=== PATIENT | male | born 1975 | race Hispanic/Latino ===

== ENCOUNTER 2016-08-26 15:22 | Observation (INO) | payer SELFPAY ==
[2016-08-26 15:28] VITALS: BP 149/90; RESP 20; TEMP 99.9
--- NOTE | 2016-08-26 15:40 | ED PDOC ---
HPI: Psych/Substance Abuse Time Seen by Provider: 08/26/16 15:35 Chief Complaint (Nursing): Psychiatric Evaluation History Per: EMS (Brought by EMS for suspected ingestion of drugs. Found swaying in street. Denies SI/HI) Onset/Duration Of Symptoms: Unknown Current Symptoms Are (Timing): Still Present Suicide/Self Injury Attempted (Context): None Severity: Moderate Past Medical History Vital Signs: Last Vital Signs Temp 99.9 F H 08/26/16 15:24 Pulse 128 H 08/26/16 15:24 Resp 20 08/26/16 15:24 BP 149/90 08/26/16 15:24 Pulse Ox 97 08/26/16 15:24 - Medical History PMH: Depression Denies: Diabetes, Hepatitis, HIV, HTN, Chronic Kidney Disease, Seizures, Sexually Transmitted Disease - Family History Family History: States: Unknown Family Hx - Home Medications Home Medications: Ambulatory Orders Medication Instructions Recorded Doxepin [Sinequan] 10 mg PO HS #15 cap 01/19/16 Gabapentin [Neurontin] 400 mg PO HS #15 cap 01/19/16 Gabapentin [Neurontin] 600 mg PO TID #60 tab 01/19/16 Prazosin HCl [Minipress] 2 mg PO HS #30 cap 01/19/16 Sertraline [Zoloft] 50 mg PO DAILY #15 tab 01/19/16 oxyCODONE [oxyCODONE Immediate 30 mg PO QID PRN #60 tab 01/19/16 Release Tab] - Allergies Allergies/Adverse Reactions: Allergies Allergy/AdvReac Type Severity Reaction Status Date / Time rocuronium Allergy RASH Verified 01/11/16 16:42 thiopental Allergy RASH Verified 01/11/16 16:42 Review of Systems Cardiovascular: Negative for: Chest Pain Respiratory: Negative for: Shortness of Breath Psych: Negative for: Suicidal ideation Physical Exam - Physical Exam Appears: Positive for: Non-toxic, No Acute Distress Skin: Positive for: Normal Color, Warm, DRY Eye Exam: Positive for: EOMI. Negative for: PERRL (pupils 2mm bilat) Cardiovascular/Chest: Positive for: Regular Rate, Rhythm Respiratory: Positive for: CNT, Normal Breath Sounds Gastrointestinal/Abdominal: Positive for: Bowel Sounds, Soft. Negative for: Tenderness Neurologic/Psych: Positive for: Alert (Sleepy arousable). Negative for: Motor/ Sensory Deficits - Laboratory Results Result Diagrams: 08/26/16 16:18 08/26/16 16:18 - ECG O2 Sat by Pulse Oximetry: 97 ED OBSERVATION Date of observation admission: 08/26/16 Time of observation admission: 15:41 - Observation admission statement Patient is being placed in observation because:: Suspected drug ingestion pending sobriety Disposition - Clinical Impression Clinical Impression: Depression - Patient ED Disposition Is Patient to be Admitted: No Counseled Patient/Family Regarding: Studies Performed, Diagnosis, Need For Followup - Disposition Disposition: Routine/Home Disposition Time: 17:00 Condition: FAIR
[2016-08-26 16:24] LABS: BASO % 0.5 % (0.0-2.0); EOS # 0.4 K/uL (0.0-0.7); EOS % 4.7 % (0.0-4.0); HEMATOCRIT 43.8 % (35.0-51.0); LYMPH # 2.3 K/uL (1.0-4.3); LYMPH % 28.5 % (20.0-40.0); MEAN CELL VOLUME 83.3 fl (80.0-94.0); MEAN CORPUSCULAR HEMOGLOBIN 27.5 pg (27.0-31.0); MEAN PLATELET VOLUME 7.4 fl (7.2-11.7); MONO # 0.8 K/uL (0.0-0.8); MONO % 9.2 % (0.0-10.0); NEUT # 4.6 K/uL (1.8-7.0); NEUT % 57.1 % (50.0-75.0); RED CELL DISTRIBUTION WIDTH 13.8 % (11.5-14.5); WHITE BLOOD COUNT 8.1 K/uL (4.8-10.8)
[2016-08-26 16:47] LABS: ALB/GLOB RATIO 1.4 (1.0-2.1); ALCOHOL SERUM < 10 mg/dl (0-10); ALKALINE PHOSPHATASE 89 U/L (38-126); ALT/SGPT 45 U/L (21-72); AST/SGOT 38 U/L (17-59); BILIRUBIN,TOTAL 0.2 mg/dl (0.2-1.3); BLOOD UREA NITROGEN 25 mg/dl (9-20); CALCIUM 9.4 mg/dL (8.4-10.2); CARBON DIOXIDE 25 mmol/L (22-30); CHLORIDE 108 mmol/L (98-107); GFR AFRICAN-AMERICAN > 60; GLUCOSE,RANDOM 120 mg/dL (75-110); POTASSIUM 3.7 MMOL/L (3.6-5.0); SODIUM 146 mmol/l (132-148); TOTAL PROTEIN 7.6 G/DL (6.3-8.2)
[2016-08-26 17:21] VITALS: PULSE 97; O2SAT 99
--- NOTE | 2016-08-27 10:59 | CARD ---
APPROVED REPORT EKG Measurement Heart [id number] <Conclusion> Sinus tachycardia Otherwise normal ECG
== END 2016-08-26 17:20 | disposition home or self-care (01) ==
LOC: H.ER 15:22 → H.EROBSV 15:41
PROVIDERS: ADMIT Emergency Medicine; ATTEND Emergency Medicine
DX: F32.9 Major depressive disorder, single episode, unspecified (principal); Z79.899 Other long term (current) drug therapy
CPT/HCPCS: 36415; 80053; 85025; 93005; 99281; G0378; G0480

== ENCOUNTER 2016-08-30 21:26 | Observation (INO) | payer SELFPAY ==
[2016-08-30 21:37] VITALS: BP 127/73; PULSE 102; RESP 16; TEMP 98; O2SAT 100
--- NOTE | 2016-08-30 22:12 | ED PDOC ---
HPI: Psych/Substance Abuse Time Seen by Provider: 08/30/16 21:53 Chief Complaint (Nursing): Psychiatric Evaluation Chief Complaint (Provider): etoh, crisis History Per: Patient, EMS Additional Complaint(s): To ED via BLS for psych evaluation. As per EMS, patient was at home intoxicated and family called because they were concerned patient was not taking his psych medications. Hx PTSD Past Medical History Reviewed: Historical Data, Nursing Documentation, Vital Signs Vital Signs: Last Vital Signs Temp 98.0 F 08/30/16 21:32 Pulse 102 H 08/30/16 21:32 Resp 16 08/30/16 21:32 BP 127/73 08/30/16 21:32 Pulse Ox 100 08/30/16 21:32 - Medical History PMH: Anxiety (=), Back Problems, Depression, Hypercholesterolemia, Post Traumatic Stress Disorder Denies: Diabetes, Hepatitis, HIV, HTN, Chronic Kidney Disease, Seizures, Sexually Transmitted Disease - Family History Family History: States: No Known Family Hx - Living Arrangements Living Arrangements: With Family - Social History Current smoker - smoking cessation education provided: Yes Alcohol: > 2 Drinks/Day Drugs: Prescription medications (opiates, benzo) - Home Medications Home Medications: Ambulatory Orders Medication Instructions Recorded Doxepin [Sinequan] 10 mg PO HS #15 cap 01/19/16 Gabapentin [Neurontin] 400 mg PO HS #15 cap 01/19/16 Gabapentin [Neurontin] 600 mg PO TID #60 tab 01/19/16 Prazosin HCl [Minipress] 2 mg PO HS #30 cap 01/19/16 Sertraline [Zoloft] 50 mg PO DAILY #15 tab 01/19/16 oxyCODONE [oxyCODONE Immediate 30 mg PO QID PRN #60 tab 01/19/16 Release Tab] - Allergies Allergies/Adverse Reactions: Allergies Allergy/AdvReac Type Severity Reaction Status Date / Time rocuronium Allergy RASH Verified 08/30/16 21:32 thiopental Allergy RASH Verified 08/30/16 21:32 Review of Systems ROS Statement: Except As Marked, All Systems Reviewed And Found Negative Physical Exam - Reviewed Nursing Documentation Reviewed: Yes Vital Signs Reviewed: Yes - Physical Exam Appears: Positive for: Non-toxic, No Acute Distress Head Exam: Positive for: ATRAUMATIC, NORMAL INSPECTION, NORMOCEPHALIC Skin: Positive for: Normal Color, Warm, DRY Eye Exam: Positive for: EOMI, Normal appearance, PERRL ENT: Positive for: Normal ENT Inspection Neck: Positive for: Normal, Painless ROM Cardiovascular/Chest: Positive for: Regular Rate, Rhythm Respiratory: Positive for: CNT, Normal Breath Sounds Gastrointestinal/Abdominal: Positive for: Normal Exam, Bowel Sounds, Soft. Negative for: Tenderness Neurologic/Psych: Positive for: Alert, Oriented. Negative for: Motor/Sensory Deficits - Laboratory Results Result Diagrams: 08/30/16 22:21 08/30/16 22:21 - ECG O2 Sat by Pulse Oximetry: 100 Medical Decision Making Medical Decision Making: pt seen and evaluated by animal nursery worker. ok for d/c. to f/u outpatient. ED OBSERVATION Date of observation admission: 08/30/16 Time of observation admission: 22:12 - Observation admission statement Patient is being placed in observation because:: intoxication - Goals of Observation Goals of observation are:: sobriety, crisis eval Disposition - Clinical Impression Clinical Impression: PTSD (post-traumatic stress disorder), Substance abuse - Patient ED Disposition Is Patient to be Admitted: No - Disposition Disposition: Routine/Home Disposition Time: 01:43 Condition: GOOD - POA Present On Arrival: None
[2016-08-30 22:36] LABS: ALB/GLOB RATIO 1.3 (1.0-2.1); ALCOHOL SERUM < 10 mg/dl (0-10); ALKALINE PHOSPHATASE 77 U/L (38-126); ALT/SGPT 57 U/L (21-72); AST/SGOT 43 U/L (17-59); BILIRUBIN,TOTAL 0.2 mg/dl (0.2-1.3); BLOOD UREA NITROGEN 16 mg/dl (9-20); CALCIUM 8.7 mg/dL (8.4-10.2); CARBON DIOXIDE 23 mmol/L (22-30); CHLORIDE 109 mmol/L (98-107); GFR AFRICAN-AMERICAN > 60; GLUCOSE,RANDOM 111 mg/dL (75-110); POTASSIUM 3.6 MMOL/L (3.6-5.0); SODIUM 143 mmol/l (132-148); TOTAL PROTEIN 6.7 G/DL (6.3-8.2)
[2016-08-30 22:50] LABS: BASO # 0.1 K/uL (0.0-0.2); BASO % 0.9 % (0.0-2.0); EOS # 0.3 K/uL (0.0-0.7); EOS % 5.1 % (0.0-4.0); HEMATOCRIT 38.3 % (35.0-51.0); LYMPH # 1.6 K/uL (1.0-4.3); LYMPH % 25.9 % (20.0-40.0); MEAN CORPUSCULAR HEMOGLOBIN 27.7 pg (27.0-31.0); MEAN CORPUSCULAR HGB CONC 33.8 g/dL (33.0-37.0); MEAN PLATELET VOLUME 7.4 fl (7.2-11.7); MONO # 0.6 K/uL (0.0-0.8); MONO % 9.8 % (0.0-10.0); NEUT # 3.7 K/uL (1.8-7.0); NEUT % 58.3 % (50.0-75.0); NRBC % 0.1 % (0.0-0.0); RED CELL DISTRIBUTION WIDTH 13.5 % (11.5-14.5); WHITE BLOOD COUNT 6.3 K/uL (4.8-10.8)
--- NOTE | 2016-08-31 08:42 | CARD ---
APPROVED REPORT EKG Measurement Heart [id number] <Conclusion> Sinus tachycardia Otherwise normal ECG
--- NOTE | 2016-08-31 10:50 | RAD ---
PROCEDURE: CHEST RADIOGRAPH, 1 VIEW HISTORY: etoh COMPARISON: 01/11/2016 FINDINGS: LUNGS: Clear. PLEURA: No pneumothorax or pleural fluid seen. CARDIOVASCULAR: Normal. OSSEOUS STRUCTURES: No significant abnormalities. VISUALIZED UPPER ABDOMEN: Normal. OTHER FINDINGS: None. IMPRESSION: No active disease. No acute/significant interval changes.
== END 2016-08-31 01:44 | disposition home or self-care (01) ==
LOC: H.ER 21:26 → H.EROBSV 22:13
PROVIDERS: ADMIT Emergency Medicine; ATTEND Emergency Medicine
DX: F43.10 Post-traumatic stress disorder, unspecified (principal); F19.10 Other psychoactive substance abuse, uncomplicated; Z79.899 Other long term (current) drug therapy
CPT/HCPCS: 71010; 80053; 85025; 93005; 99281; G0378; G0480